=== PATIENT | male | born 1975 | race Caucasian/White ===

== ENCOUNTER → 2020-12-26 07:44 | Outpatient (BNVA) | payer OTHER, SELFPAY | PROVIDERS: Family Provider Family Medicine; PCP Family Medicine; Visit Provider Family Medicine | DX: Z76.89 Persons encountering health services in other specified circumstances (principal); Z13.220 Encounter for screening for lipoid disorders; Z13.6 Encounter for screening for cardiovascular disorders | CPT/HCPCS: 80053; 80061; 84402; 84443; 85025 ==

== ENCOUNTER 2023-08-14 16:30 | Outpatient (CLI) | payer OTHER, SELFPAY | END 2023-08-14 16:31 | disposition home or self-care (01) | LOC: SLEEP 08-15 17:06 | PROVIDERS: PCP Family Medicine; Visit Provider Family Medicine | DX: G47.33 Obstructive sleep apnea (adult) (pediatric) (principal); G47.36 Sleep related hypoventilation in conditions classified elsewhere | CPT/HCPCS: G0399 ==

== ENCOUNTER → 2023-10-01 11:49 | Outpatient (CLI) | payer OTHER, SELFPAY ==
--- NOTE | 2023-10-01 12:00 | USCV_ITS ---
Fidel Craft Age: 48 Gender: M : 1975 Exam Date: 10/01/2023 12:05 Ordering Phys: Tommy Payne MD (Andy) ([email or web address] – [place]) Technologist: [employer] Exam Location: [facility] [place] Indication: HISTORY: PROCEDURES: FINDINGS: All deep veins demonstrated compressibility without evidence of intraluminal thrombus or increased echogenicity. Spectral analysis of Doppler signals demonstrates normal response to compression maneuvers indicating patency without obstruction. Reflux determinations were made with the patient in the dependent position, the weight being on the contralateral leg. THERE are mutiple levels of reflux in the rt gsaph vein. This patient would be a good canidate for ablation Significant venous reflux was noted on the right side at the saphenofemoral junction, distal to the saphenofemoral junction, mid and distal greater saphenous vein segments and mid small saphenous vein segment. The reflux time where 1, 0.96, 3.5, 3.9 and 1.0 seconds respectively. The venous segment was at 1.8, 1.9, 1.1, 1.3 and 0.71 cm respectively. The saphenous segments were measuring at 0.8, 0.76, 0.61, 0.69 and 0.28 cm respectively CONCLUSIONS 1. Significant reflux of greater than 500 ms were noted at the saphenofemoral junction, distal the great saphenous vein segment, mid and distal greater saphenous vein segments, mid small saphenous vein segment. The reflux time, distance from the surface and the venous dimensions were as mentioned above. Dr Marci Stearns MD [facility] (Electronically Signed) Final Date: 01 October 2023 20:25 S
== END | disposition home or self-care (01) ==
LOC: RAD 11:49
PROVIDERS: PCP Family Medicine; Visit Provider Thoracic Surgery (Cardiothoracic Vascular Surgery)
DX: I83.93 Asymptomatic varicose veins of bilateral lower extremities (principal)
CPT/HCPCS: 93970